=== PATIENT | female | born 1975 | race Caucasian/White ===

== ENCOUNTER 2019-08-15 10:20 | Emergency (ER) | payer BC ==
[2019-08-15] MEDS ORDERED: Cephalexin 500 MG Cap PO ONE (10:21)
[2019-08-15 10:26] VITALS: BP 153/89; PULSE 83
--- NOTE | 2019-08-15 10:34 | EDM.PDOC ---
ED HPI GENERAL MEDICAL PROBLEM - General Chief Complaint: Genitourinary Problem Stated Complaint: I have a UTI Time Seen by Provider: 08/15/19 10:20 Source of Information: Reports: Patient History Limitations: Reports: No Limitations - History of Present Illness INITIAL COMMENTS - FREE TEXT/NARRATIVE: in with c/o UTI sx for the past few days, no fever, has had some pain into her low back, no flank pain, has not noticed any blood in her urine, no nv, no fever or chills Onset: Gradual Duration: Day(s): Location: Reports: Abdomen, Back Quality: Reports: Ache Severity: Mild Improves with: Reports: None Worsens with: Reports: None Associated Symptoms: Reports: No Other Symptoms. Denies: Fever/Chills, Nausea/ Vomiting Treatments SILK SOAKER: Reports: Other (see below) (none) Bladder Pain Score (Numeric/FACES): 6 - Related Data Allergies Allergy/AdvReac Type Severity Reaction Status Date / Time sulfamethoxazole Allergy Diarrhea Verified 08/15/19 10:28 [From Bactrim] trimethoprim [From Bactrim] Allergy Diarrhea Verified 08/15/19 10:28 Home Meds: Home Meds Cephalexin [Keflex] 500 mg PO QID 10 Days #40 capsule 08/15/19 [Rx] DULoxetine HCl [Duloxetine HCl] 120 mg PO DAILY 08/15/19 [History] traZODone HCl [Trazodone HCl] 50 mg PO DAILY 08/15/19 [History] Past Medical History Psychiatric History: Reports: Depression ED ROS GENERAL - Review of Systems Review Of Systems: See Below Constitutional: Reports: No Symptoms. Denies: Fever, Chills HEENT: Reports: No Symptoms Respiratory: Reports: No Symptoms Cardiovascular: Reports: No Symptoms GI/Abdominal: Reports: Other (suprapubic tenderness). Denies: Nausea, Vomiting : Reports: Frequency, Pain, Urgency. Denies: Discharge, Dysuria, Flank Pain, Hematuria, Urinary Retention Musculoskeletal: Reports: No Symptoms Skin: Reports: No Symptoms Neurological: Reports: No Symptoms Psychiatric: Reports: No Symptoms ED EXAM, RENAL/ - Physical Exam Exam: See Below Exam Limited By: No Limitations General Appearance: Alert, WD/WN, No Apparent Distress Ears: Normal External Exam Nose: Normal Inspection Throat/Mouth: Normal Voice, No Airway Compromise Head: Atraumatic, Normocephalic Neck: Normal Inspection, Supple, Non-Tender, Full Range of Motion Respiratory/Chest: No Respiratory Distress, Lungs Clear, Normal Breath Sounds, Chest Non-Tender Cardiovascular: Normal Peripheral Pulses, Regular Rate, Rhythm, No Murmur GI/Abdominal: Soft, Non-Tender, No Distention Back Exam: Normal Inspection, Full Range of Motion. No: CVA Tenderness (L), CVA Tenderness (R) Extremities: Normal Inspection, Normal Range of Motion, Non-Tender, Normal Capillary Refill Neurological: Alert, Oriented, Normal Cognition, Normal Gait, No Motor/Sensory Deficits Psychiatric: Normal Affect, Normal Mood Skin Exam: Warm, Dry, Intact, Normal Color Course - Vital Signs Text/Narrative:: I suspect the pt has a UTI, will start on keflex and pyridium, will increase fluids and f/u with pcp in 7 to 10 days Last Recorded V/S: Last Vital Signs Temp 36.6 C 08/15/19 10:22 Pulse 83 08/15/19 10:22 Resp 18 08/15/19 10:22 BP 153/89 H 08/15/19 10:22 Pulse Ox 100 08/15/19 10:22 Departure - Departure Time of Disposition: 10:32 Disposition: Home, Self-Care 01 Condition: Good Clinical Impression: UTI, Urinary tract infectious disease - Discharge Information *PRESCRIPTION DRUG MONITORING PROGRAM REVIEWED*: Not Applicable *COPY OF PRESCRIPTION DRUG MONITORING REPORT IN PATIENT TREVON: Not Applicable Prescriptions: Cephalexin [Keflex] 500 mg PO QID 10 Days #40 capsule Instructions: Urinary Tract Infection, Adult Additional Instructions: increase fluids keflex 500mg 4 x a day for 10 days pyridium 100mg 3 x a day for 2 days follow up with your family doctor in 7 to 10 days for a repeat urine test return to the ER sooner if worse or problems - Problem List & Annotations (1) UTI, Urinary tract infectious disease SNOMED Code(s): 87245710 Code(s): N39.0 - URINARY TRACT INFECTION, SITE NOT SPECIFIED Status: Acute Priority: Medium - Problem List Review Problem List Initiated/Reviewed/Updated: Yes - Assessment/Plan Plan: as above
[2019-08-15] MEDS ORDERED: Take Home: Cephalexin 500 MG Cap, 4 Cap Pack PO ONE (10:36)
[2019-08-15] MEDS ORDERED: Phenazopyridine 95 MG Tab PO ONE (10:40)
== END 2019-08-15 10:56 | disposition home or self-care (01) ==
LOC: CC.ED 10:20
DX: N39.0 Urinary tract infection, site not specified (principal); F32.9 Major depressive disorder, single episode, unspecified; F17.200 Nicotine dependence, unspecified, uncomplicated; Z88.2 Allergy status to sulfonamides; Z79.899 Other long term (current) drug therapy
CPT/HCPCS: 81001; 87086; 99283; A9270-GY

== ENCOUNTER 2023-05-14 20:58 | Emergency (ER) | payer BC ==
[2023-05-14] MEDS ORDERED: Sodium Chloride 0.9% 1,000 ML IV ONE (21:14)
[2023-05-14] MEDS ORDERED: Ketorolac 30 MG/ML SDV IVPUSH ONE (21:14)
[2023-05-14] MEDS ORDERED: Ondansetron 4 MG/2 ML SDV IVPUSH PRN (21:14)
[2023-05-14 21:29] LABS: BASOPHILS ABSOLUTE AUTO 0.07 10^3/uL (0.00-0.50); BASOPHILS PERCENT AUTO 0.7 % (0-1); EOSINOPHILS ABSOLUTE AUTO 0.28 10^3/uL (0.00-1.50); EOSINOPHILS PERCENT AUTO 2.9 % (0-6); HEMOGLOBIN 13.9 g/dL (12.0-16.0); IMMATURE GRAN ABSOLUTE AUTO 0.02 10^3/uL (0.00-0.49); IMMATURE GRAN PERCENT AUTO 0.2 % (0.0-4.9); LYMPHOCYTES ABSOLUTE AUTO 3.78 10^3/uL (0.60-5.00); LYMPHOCYTES PERCENT AUTO 39.3 % (24-44); MEAN CORPUSCULAR HGB CONC 34.8 g/dL (32.0-36.0); MEAN CORPUSCULAR VOLUME 86.2 fL (83.0-97.0); MONOCYTES ABSOLUTE AUTO 0.65 10^3/uL (0.00-1.50); MONOCYTES PERCENT AUTO 6.8 % (0-10); NEUTROPHILS ABSOLUTE AUTO 4.82 x10^3/uL (1.80-8.00); NEUTROPHILS PERCENT AUTO 50.1 % (41-71); PLATELET COUNT,PLT 247 10^3/uL (150-400); RED BLOOD CELL COUNT 4.64 x10^6/uL (4.00-5.50); WHITE BLOOD CELL COUNT,WBC 9.6 10^3/uL (4.0-11.0)
[2023-05-14] MEDS ORDERED: HYDROmorphone 0.5 MG/0.5 ML Syringe IVPUSH ONE ×3 (21:33→23:46)
[2023-05-14 21:38] VITALS: BP 151/81; PULSE 67
[2023-05-14 21:42] LABS: ALBUMIN 3.9 g/dL (3.4-5.0); BILIRUBIN TOTAL 0.5 mg/dL (0.0-1.0); CREATININE 1.2 mg/dL (0.6-1.0); EST CRCL DRUG DOSING (CG) 61.87 mL/min
[2023-05-14 21:46] LABS: APPEARANCE,URINE SLIGHTLY CLOUDY (CLEAR); BILIRUBIN,URINE NEGATIVE (NEGATIVE); COLOR,URINE DARK YELLOW (YELLOW); GLUCOSE,URINE NEGATIVE (NEGATIVE); KETONES,URINE 15 mg/dL (NEGATIVE); LEUKOCYTE ESTERASE,URINE NEGATIVE (NEGATIVE); NITRITE,URINE NEGATIVE (NEGATIVE); OCCULT BLOOD,URINE LARGE (NEGATIVE); PROTEIN,URINE 100 mg/dL (NEGATIVE); UROBILINOGEN,URINE 0.2 EU/dL (0.2-1.0)
[2023-05-14 21:52] LABS: BACTERIA,URINE FEW /HPF (NOT SEEN); RBC,URINE >100 /HPF (0-5); SQUAMOUS EPITHELIAL CELLS,UR FEW /HPF (NOT SEEN); WBC,URINE NOT SEEN /HPF (0-5)
[2023-05-14] MEDS ORDERED: Acetaminophen/HYDROcodone 325-5 MG Tab PO ONE (22:20)
[2023-05-14] MEDS ORDERED: Aluminum Hydroxide/Magnesium Hydroxide/Simethicone Susp 30 ML Cup PO ONE (22:42)
[2023-05-14] MEDS ORDERED: Tamsulosin 0.4 MG Cap.ER PO ONE (22:46)
[2023-05-14] MEDS ORDERED: Sodium Chloride 0.9% 1,000 ML IV SCH (23:45)
[2023-05-15] MEDS ORDERED: Aluminum Hydroxide/Magnesium Hydroxide/Simethicone Susp 30 ML Cup PO ONE (00:28)
== END 2023-05-15 00:32 ==
LOC: CC.ED 20:58
DX: N13.2 Hydronephrosis with renal and ureteral calculous obstruction (principal); Z79.899 Other long term (current) drug therapy; Z88.2 Allergy status to sulfonamides; Z88.8 Allergy status to other drugs, medicaments and biological substances
CPT/HCPCS: 36415; 74176; 80053; 81001; 85025; 86140; 96361; 96374; 96375; 96376; 99284; 99285-25; A9270-GY; J1170; J1885; J2405; J7030

== ENCOUNTER 2025-01-13 11:27 | Emergency (ER) | payer OTHER ==
[2025-01-13 11:50] LABS: APPEARANCE,URINE CLEAR (CLEAR); BILIRUBIN,URINE NEGATIVE (NEGATIVE); COLOR,URINE YELLOW (YELLOW); GLUCOSE,URINE NEGATIVE (NEGATIVE); KETONES,URINE NEGATIVE (NEGATIVE); LEUKOCYTE ESTERASE,URINE NEGATIVE (NEGATIVE); NITRITE,URINE NEGATIVE (NEGATIVE); OCCULT BLOOD,URINE TRACE-INTACT (NEGATIVE); PH,URINE 5.5 (4.5-8.0); PROTEIN,URINE NEGATIVE (NEGATIVE); UROBILINOGEN,URINE 0.2 EU/dL (0.2-1.0)
[2025-01-13] MEDS ORDERED: Sodium Chloride 0.9% 10 ML Syringe FLUSH PRN (11:50)
[2025-01-13 11:56] LABS: BASOPHILS ABSOLUTE AUTO 0.05 10^3/uL (0.00-0.50); BASOPHILS PERCENT AUTO 0.6 % (0-1); EOSINOPHILS ABSOLUTE AUTO 0.09 10^3/uL (0.00-1.50); HEMATOCRIT 41.6 % (37.0-47.0); IMMATURE GRAN ABSOLUTE AUTO 0.01 10^3/uL (0.00-0.49); IMMATURE GRAN PERCENT AUTO 0.1 % (0.0-4.9); LYMPHOCYTES PERCENT AUTO 12.5 % (24-44); MEAN CORPUSCULAR HEMOGLOBIN 29.9 pg (27.0-32.0); MEAN CORPUSCULAR HGB CONC 33.7 g/dL (32.0-36.0); MEAN CORPUSCULAR VOLUME 88.9 fL (83.0-97.0); MONOCYTES ABSOLUTE AUTO 0.64 10^3/uL (0.00-1.50); MONOCYTES PERCENT AUTO 7.3 % (0-10); NEUTROPHILS ABSOLUTE AUTO 6.93 x10^3/uL (1.80-8.00); NEUTROPHILS PERCENT AUTO 78.5 % (41-71); PLATELET COUNT,PLT 202 10^3/uL (150-400); RED BLOOD CELL COUNT 4.68 x10^6/uL (4.00-5.50); WHITE BLOOD CELL COUNT,WBC 8.8 10^3/uL (4.0-11.0)
[2025-01-13] MEDS: Sodium Chloride 0.9% 1,000 ML IV ONE (11:58)
[2025-01-13] MEDS: Ondansetron 4 MG/2 ML SDV IVPUSH STA (12:04)
[2025-01-13] MEDS: Ketorolac 30 MG/ML SDV IVPUSH ONE (12:06)
[2025-01-13 12:08] LABS: ALBUMIN 3.6 g/dL (3.4-5.0); BILIRUBIN TOTAL 0.8 mg/dL (0.0-1.0); C-REACTIVE PROTEIN 2.97 mg/dL (<=0.50); CALCIUM 8.2 mg/dL (8.4-10.1); CREATININE 0.8 mg/dL (0.6-1.0); EST CRCL DRUG DOSING (CG) 87.7 mL/min; POTASSIUM,K 3.5 mEq/L (3.5-5.0); PROTEIN TOTAL,TP 6.9 g/dL (6.4-8.2)
[2025-01-13 12:12] LABS: RBC,URINE 0-5 /HPF (0-5); WBC,URINE 0-5 /HPF (0-5)
[2025-01-13 12:13] LABS: BACTERIA,URINE FEW /HPF (NOT SEEN); SQUAMOUS EPITHELIAL CELLS,UR FEW /HPF (NOT SEEN)
[2025-01-13 12:32] LABS: CORONAVIRUS COVID-19 NAA NEGATIVE (NEGATIVE); INFLUENZA A NAA NEGATIVE (NEGATIVE); INFLUENZA B NAA NEGATIVE (NEGATIVE); RESPIRATORY SYNCYTIAL VIR NAA NEGATIVE (NEGATIVE)
[2025-01-13 15:23] VITALS: BP 135/81; PULSE 89
== END 2025-01-13 13:15 | disposition home or self-care (01) ==
LOC: CC.ED 11:27
DX: K52.9 Noninfective gastroenteritis and colitis, unspecified (principal); Z79.899 Other long term (current) drug therapy; Z88.2 Allergy status to sulfonamides; Z88.8 Allergy status to other drugs, medicaments and biological substances
CPT/HCPCS: 0241U; 36415; 74176; 80053; 81001; 85025; 86140; 96361; 96374; 96375; 99284; J1885; J2405; J7030

== ENCOUNTER 2025-01-29 09:57 | Day surgery (SDC) | payer OTHER ==
[2025-01-29] MEDS: Lactated Ringers 1,000 ML IV SCH (10:37)
[2025-01-29] MEDS ORDERED: Midazolam 1 MG/ML 2 ML SDV ONE (11:00)
[2025-01-29] MEDS ORDERED: Ketamine 200 MG/20 ML MDV ONE (11:00)
[2025-01-29] MEDS ORDERED: Propofol 200 MG/20 ML SDV ONE ×2 (11:00)
[2025-01-29] MEDS ORDERED: Phenylephrine 1% 10 MG/ML SDV ONE (11:00)
[2025-01-29] MEDS ORDERED: Ondansetron 4 MG/2 ML SDV ONE (11:00)
[2025-01-29] MEDS ORDERED: fentaNYL 50 MCG/ML SDV ONE ×2 (11:00)
[2025-01-29 12:41] VITALS: BP 112/73; PULSE 60
== END 2025-01-29 12:25 | disposition home or self-care (01) ==
LOC: CC.SDS 09:57
PROVIDERS: ATTEND Family Medicine
DX: D12.5 Benign neoplasm of sigmoid colon (principal); K31.89 Other diseases of stomach and duodenum; K29.70 Gastritis, unspecified, without bleeding; K57.30 Diverticulosis of large intestine without perforation or abscess without bleeding; K52.9 Noninfective gastroenteritis and colitis, unspecified; K44.9 Diaphragmatic hernia without obstruction or gangrene; E03.9 Hypothyroidism, unspecified; E66.9 Obesity, unspecified; K21.9 Gastro-esophageal reflux disease without esophagitis; Z68.31 Body mass index [BMI] 31.0-31.9, adult; Z88.8 Allergy status to other drugs, medicaments and biological substances; Z79.899 Other long term (current) drug therapy; Z79.890 Hormone replacement therapy
CPT/HCPCS: 00813; 87081; J2250; J2371; J2405; J2704; J3010; J3490; J7120